=== PATIENT | male | born 1990 | race Two or more races ===

== ENCOUNTER 2020-10-25 13:32 | Emergency (ER) | payer OTHER ==
[~2020-10-25] VITALS: Ht 165.1 cm; Wt 71.5 kg
--- NOTE | 2020-10-25 14:11 | NUR ---
NUTRITIONALIST: PT TO ROOM FROM LOBBY
--- NOTE | 2020-10-25 14:39 | NUR ---
PT PROVIDED URINE SAMPLE. UA COLLECTED AND SENT TO LAB. AWAITING US. PT SITTING ON [employer], PLAYING ON PHONE.
--- NOTE | 2020-10-25 15:01 | NUR ---
US AT BEDSIDE.
[2020-10-25 15:03] LABS: MICROSCOPIC NOT IND
--- NOTE | 2020-10-25 15:55 | NUR ---
ALL RESULTS ARE BACK AT THIS TIME. CHART UP FOR RECHECK.
[2020-10-25 16:17] VITALS: BP 128/75
--- NOTE | 2020-10-25 16:18 | NUR ---
ERPA AT BEDSIDE TO UPDATE PT ON POC
== END 2020-10-25 16:29 | disposition home or self-care (01) ==
LOC: ED 16:15
DX: I86.1 Scrotal varices (principal); N50.811 Right testicular pain
CPT/HCPCS: 76870; 81003; 99284